=== PATIENT | male | born 1950 | race Caucasian/White ===

== ENCOUNTER 2016-08-10 09:56 | Inpatient (IN) | payer MEDICARE, OTHER ==
[~2016-08-10] VITALS: Ht 175.3 cm; Wt 54.6 kg
[2016-08-10] VITALS (7 sets, daily range): BP systolic 80–119; BP diastolic 43–55; PULSE 62–85; RESP 14–22; O2SAT 96–99
[~2016-08-10 09:56] MED LIST: ASPI-628 PO; METF500T4 PO; MULT-1018 PO
--- NOTE | 2016-08-10 10:08 | ED.REPORT ---
HPI-General Illness Date of Service Aug 10, 2016 ED Provider: Malika Mcdermott MD The pt is 66 y/o male w/ a hx COPD presenting to the ED complaining of epigastric pain onset 2 weeks ago. The pain initially got better but has now worsened. He is also experiencing chills, heart palpitations, night sweats, fatigue, myalgia, SOB, productive cough, excessive sputum, nausea, diarrhea, lightheadedness, dizziness, and a headache. He reports usually getting mild colds but nothing as severe as this. His currently has a mild cold. The pt is a former smoker w/ a 50 pack/year hx. He has had multiple episodes of SVT in the past. Denies fever. Nursing Notes Stated Complaint: CHEST PAIN Chief Complaint: Epigastric pain Nursing Notes Reviewed: Yes Allergies: Coded Allergies: No Known Drug Allergies (Verified Allergy, Unknown, 12/31/13) No Active Prescriptions or Reported Meds General Time Seen by MD: 10:04 Chief Complaint Abdominal pain (Epigastric ) Hx Obtained From: Patient Arrived By: Walk-in Sudden in Onset?: Yes Onset Occurred: More than a week ago... (2 weeks) Recent Healthcare: No recent hospitalization, Recent doctor visit Similar Sx Previous: Yes Past Medical History Past Medical History COPD Past Surgical History Reports: Tonsillectomy Smoking History Former Smoker (50 packs/yr ) Social History Other Social History: Good social support Ambulatory Status Independent Review of Systems Night sweats Full Review of Systems Constitutional: Reports: Chills, Fatigue, Denies: Fever Respiratory: Reports: Dyspnea on exertion, Prod cough, clear, Shortness of breath Cardiovascular: Reports: Palpitations GI: Reports: Abdominal pain (Epigastric ), Diarrhea, Nausea Musculoskeletal: Reports: Myalgia Neurologic: Reports: Dizziness, Headache, Lightheaded Complete sys rev & neg: except as marked. Physical Exam Vital Signs Vital Signs Date Time Temp Pulse Resp B/P Pulse Ox O2 Delivery O2 Flow Rate FiO2 08/10/16 13:14 85 14 89/52 97 08/10/16 11:44 80 21 91/43 99 Room Air 08/10/16 10:47 81 22 90/48 96 Room Air 08/10/16 10:03 36.8 85 15 119/53 99 Room Air Initial VS: Reviewed General/Constitutional: Awake, Alert Appearance / Presentation: Positive: Pale Very thin Head / Eyes: Atraumatic, Normocephalic ENT: Atraumatic, Airway patent, Mucous membranes moist Neck: Atraumatic, Supple, Full range of motion Respiratory / Chest: Breath sounds = bilat, No respiratory distress Wheezing / Retractions: Positive: Wheezing mild (Scattered ) Poor air movment throughout Not using accessory muscles and is speaking in full sentences. Cardiovascular: Heart rate NL, Regular rhythm, Heart sounds NL, Peripheral circulation NL Prominent abd aorta, 5 cm in width from epigastrium to umbilicus. Abdomen: Soft, BS normoactive Tenderness/Guarding/Rebound: Positive: Tender epigastric Interpretation & Diagnostics Lab Results Interpretation Result Diagram: 08/10/16 1005 08/10/16 1005 Test 08/10/16 10:05 08/10/16 10:56 White Blood Count 16.4th/mm3 (3.8-10.1) Red Blood Count 4.45mil/mm3 (4.40-5.80) Hemoglobin 13.6g/dL (13.8-17.2) Hematocrit 40.2% (41.0-50.0) Mean Corpuscular Volume 90.3fL (81-100) Mean Corpuscular Hemoglobin 30.6pg (27.0-35.0) Mean Corpuscular Hemoglobin Concent 33.8% (32.0-37.0) Red Cell Distribution Width 12.0% (12.3-15.4) Platelet Count 354bil/L (150-400) Neutrophils (%) (Auto) 74.8% (40-74) Lymphocytes (%) (Auto) 11.2% (14-46) Monocytes (%) (Auto) 12.0% (4-12) Eosinophils (%) (Auto) 1.3% (0-5) Basophils (%) (Auto) 0.2% (0-3) Sodium Level 137mEq/L (134-144) Potassium Level 3.9mEq/L (3.5-5.2) Chloride Level 98mEq/L (97-108) Carbon Dioxide Level 23mmol/L (18-29) Blood Urea Nitrogen 25mg/dL (8-27) Creatinine 1.14mg/dL (0.76-1.27) Estimat Glomerular Filtration Rate 68mL/min (>59) Glucose Level 126mg/dL (60-99) Calcium Level 9.4mg/dL (8.5-10.1) Magnesium Level 2.1mg/dL (1.6-2.6) Total Bilirubin 0.8mg/dL (0.0-1.2) Aspartate Amino Transf (AST/SGOT) 16U/L (0-50) Alanine Aminotransferase (ALT/SGPT) 10U/L (0-44) Alkaline Phosphatase 77U/L (25-160) Troponin T 0.093ug/L (0.0-0.011) Total Protein 7.9g/dL (6.4-8.4) Albumin 3.6g/dL (3.4-5.0) Procalcitonin 0.15ng/mL (0.00-0.08) Lactic Acid Level 2.0mmol/L (0.4-2.0) ECG Interpretation ECG Interpretation: Rate 82 Normal sinus rhythm Time: 10:02 Interpreted by: Client Application Support Engineer ECG Interpretation: Rate 150 Junctional tachycardia New rhythm Possible SVT Time: 13:06 Interpreted by: ED physician, Client Application Support Engineer ECG Interpretation: Rate 82 Normal sinus rhythm Atrial premature complex Probable left atrial enlargement Post 6 mg of Adenosine Time: 13:14 Interpreted by: ED physician, Client Application Support Engineer X-Ray Chest Interpretation Chest Xray Interpretation: IMPRESSION: Patchy consolidative left midlung opacity which appears new or increased raising the possibility of bronchopneumonia, however recommend radiographic followup to document resolution and exclude superimposed pulmonary nodule. Elsewhere, chronic interstitial changes and scarring as above. Dictated by: Rudolph Meade M.D. on 08/10/2016 at 10:38 Approved by: Rudolph Meade M.D. on 08/10/2016 at 10:42 View: Portable, 1 view Interpretation / Wet Read by: Interpret - Radiologist US Abdominal Aorta No aneurism, superficial aorta Exam Performed by: Allied health pract Procedures Central Line Placement Time: 13:12 Procedure Performed by: ED physician Consent / Setup / Site Prep: Consent from patient, Time-out performed, Pulse oximeter applied, telemetry monitor applied, Hand hygiene observed, Standard surgical scrub, Max barrier precaution, Position Trendelenburg Skin Preparation Agent: Hibiclens - Chlorhexidine Local Anesthesia: Lidocaine 1% Side / Location / Ultrasound: Internal jugular right, Ultrasound assisted Catheter / Lumen / Technique: Triple lumen, Secured with tape Central Line Tip Location: Cath tip positioned in (Distal Superiour Vena Cava almost to atrium ) Post-Procedure / Complications: Dressing placed, CXR neg for pneumothorax, Condition improved, Tolerated procedure well, Patient stable Re-Eval/Medical Decision Med Decision/Clinical Course 66-year-old gentleman presents to the urgent care complaining of some chest pain and increasing exertional dyspnea. He was recently treated for outpatient pneumonia complains of increasing weakness. At urgent care she felt that his exertional dyspnea was most likely a COPD exacerbation but was concerned about the possibility of an enlarging abdominal aneurysm and felt that cardiac etiology needed to be more fully worked up. Initial blood pressure systolic in urgent care was in the 110 range with a heart rate in the 80 range. Workup reveals a left-sided pneumonia slightly elevated troponin he complains of palpitations and has an episode of SVT that is treated with adenosine. This episode of SVT re-create the palpitations he has been having and with the episode he was clinically unstable dropping his blood pressure systolic to the 80s. Throughout his emergency room stay he continued to feel generally unwell and his blood pressure continued to drop despite repeated fluid boluses. Antibiotics were started in the form of ceftriaxone presuming a community-acquired pneumonia. He has already completed an outpatient course of azithromycin within the last 2 weeks. As his systolic blood pressure continued to follow he did not have increasing oxygenation commands. With his troponin positive he was given aspirin as well as subcutaneous Lovenox. After his third fluid bolus and continued hypotension he was moved to a larger exam room where the right internal ultrasound-guided central line was placed for pressors. After treating his episode of unstable supraventricular tachycardia care was briefly reviewed with Dr. Albrecht before starting was started and antibiotic choices were expanded to include Levaquin, penicillin tazobactam and vancomycin He was transferred to the second floor with, systolic blood pressure in the 90s, alert intact and no evidence of respiratory distress. Currently in sinus rhythm Source of Hx: Old records Time of Eval: 11:48 Re-Evaluation/Progress Note: Pt rechecked. Informed pt of need for admission. Pt understands and agrees with plan for admission. All questions addressed. Pt's systolic blood pressure was 93 after 1 liter of fluid. Going to try a second liter. Time of Eval: 13:12 Re-Evaluation/Progress Note: Central line procedure performed 6 mg of Adenosine was administered Time of Eval: 13:42 Re-Evaluation/Progress Note: Pt rechecked. Informed pt of need for admission. Pt understands and agrees with plan for admission. All questions addressed. Consultation #1: Referral / Consult Name: IrwinKizzy DO Consulted With: Hospitalist Call Returned at: 13:37 Taximeter Repairer: Will see patient, Agrees with eval, Agrees with plan, Accepts admit Consultation #2: Referral / Consult Name: Fahad Albrecht MD Consulted With: Cardiology Call Returned at: 13:38 Note: Discussed pt's case. Agreed with the plan to administer Levophed. Counseled Regarding: Diagnosis, Lab results, Need for admission Discharge & Departure Primary Impression: Pneumonia Pneumonia type: due to unspecified organism Laterality: left Lung location : unspecified part of lung Qualified Code: J18.9 - Pneumonia, unspecified organism Additional Impressions: Elevated troponin SVT (supraventricular tachycardia) Sepsis Disposition: ADMITTED TO HOSPITAL Discharge Condition All VS Reviewed: Yes Condition: Stable Referrals: Chino Orellana DO (PCP) Crit Care Except Billable Proc Time Spent: 30-74 minutes Services Performed: Patient management by me, Time spent at bedside, Reviewing test results, Reviewing imaging, Discussing patient care, Documentation in record, Time with fam/surrogate Scribe Attestation Portions of this note were transcribed by Alek Mcdonald. IDr. Mcdermott personally performed the history, physical exam and medical decision-making; I reviewed and confirmed the accuracy of the information in the transcribed note. Signed by : Deneen Del Rosario, 08/10/16 and 1049. copies to: Chino Orellana Shawna L MD Aug 10, 2016 10:08 Alek Mcdonald Aug 10, 2016 10:45
[2016-08-10 10:15] LABS: BASOPHILS % (AUTO) 0.2 % (0-3); EOSINOPHILS % (AUTO) 1.3 % (0-5); Mean Corpuscular Hemoglobin 30.6 pg (27.0-35.0); Mean Corpuscular Volume 90.3 fL (81-100); NEUTROPHILS % (AUTO) 74.8 % (40-74); Platelet Count 354 bil/L (150-400)
[2016-08-10] MEDS ORDERED: 0.9% Sodium Chloride 1,000 ML IV ONE ×4 (10:40→15:00)
--- NOTE | 2016-08-10 10:44 | DRSVH ---
PROCEDURE: X-RAY CHEST ONE VIEW, PORTABLE ([id number]) INDICATIONS: cp TECHNIQUE: One view of the chest was acquired. COMPARISON: [facility], CR, CHEST 1VW (PORTABLE), 12/24/2010, 23:23. [facility], CR, XR CHEST 2VW, 07/24/2016, 8:00. FINDINGS: Surgical changes and devices: None. Lungs and pleura: No pleural effusions or pneumothorax. Diffuse interstitial changes and prominent l inear scarring/atelectasis in the left upper lobe. There is 3 cm increased left midlung patchy consol idative opacity No definite new focal consolidation. Previous described right medial rib calcification unchanged proj ecting over the right upper lobe as before. Mediastinum: Mediastinal contours appear normal. Heart size is normal. Bones and chest wall: Lateral curvature of the spine and diffuse discogenic changes. IMPRESSION: Patchy consolidative left midlung opacity which appears new or increased raising the possibility of b ronchopneumonia, however recommend radiographic followup to document resolution and exclude superimpo sed pulmonary nodule. Elsewhere, chronic interstitial changes and scarring as above. Dictated by: Rudolph Meade M.D. on 08/10/2016 at 10:38 Approved by: Rudolph Meade M.D. on 08/10/2016 at 10:42
[2016-08-10] MEDS ORDERED: cefTRIAXone Inj 2,000 MG in Dextrose 5% Minibag Plus 50 ML IV ONE (10:50)
[2016-08-10 11:10] LABS: Magnesium 2.1 mg/dL (1.6-2.6)
--- NOTE | 2016-08-10 11:21 | DRSVH ---
PROCEDURE: US AORTA RETROPERITONEAL LIMITED INDICATIONS: large palable abdominal aorta TECHNIQUE: Real time scanning was performed of the aorta and iliac arteries, with image documentatio n. COMPARISON: None. FINDINGS: There is scattered atheromatous plaque. Aorta: Proximal aortic diameter measures 2.8 cm. Mid-aorta measures 1.7 cm. Distal aortic diameter is 1.5 cm. Iliac arteries: Right common iliac artery measures 0.8 cm. Left common iliac artery measures 0.7 cm . IMPRESSION: No aneurysm. Dictated by: Rudolph Meade M.D. on 08/10/2016 at 11:18 Approved by: Rudolph Meade M.D. on 08/10/2016 at 11:19
[2016-08-10 11:29] LABS: TROPONIN T 0.093 ug/L (0.0-0.011)
[2016-08-10] MEDS ORDERED: Norepineph 8,000 mCg/250 mL NS 8,000 MCG in IV Premix 1 EACH IV SCH (12:56)
[2016-08-10] MEDS ORDERED: levoFLOXacin Inj 750 MG in IV Premix 1 EACH IV ONE (13:00)
[2016-08-10] MEDS ORDERED: Piperacillin-Tazo 3.375 Gm Inj 3.375 GM in Dextrose 5% Minibag Plus 50 ML IV ONE (13:00)
[2016-08-10] MEDS ORDERED: Vancomycin Dose per Pharmacist XX ONE (13:00)
[2016-08-10] MEDS ORDERED: Adenosine 3 mg/mL 2 mL Inj IVPUSH ONE ×2 (13:05)
[2016-08-10] MEDS ORDERED: Vancomycin Inj 1,000 MG in IV Premix 1 EACH IV ONE (13:20)
--- NOTE | 2016-08-10 14:03 | DRSVH ---
PROCEDURE: X-RAY CHEST ONE VIEW, PORTABLE ([id number]) INDICATIONS: CENTRAL LINE PLACEMENT TECHNIQUE: One view of the chest was acquired. COMPARISON: [facility], CR, XR CHEST 1VW (PORTABLE), 08/10/2016, 10:14. FINDINGS: Surgical changes and devices: Right IJ CVL is in place tip projected over the upper SVC.. Lungs and pleura: No pleural effusions or pneumothorax. Diffuse interstitial changes and prominent l inear scarring/atelectasis in the left upper lobe. 3 cm increased left midlung patchy consolidative o pacity redemonstrated. No definite new focal consolidation. Previous described right medial rib calcification unchanged proj ecting over the right upper lobe as before. Mediastinum: Mediastinal contours appear normal. Heart size is normal. Bones and chest wall: No acute changes. Mild rightward curvature redemonstrated. IMPRESSION: 1. Placement right IJ CVL otherwise no change from recent exam. Dictated by: Elijah Cortes [facility] Interpreted: Mirian Carroll MD on 08/10/2016 at 14:00 Transcribed by: MARIA on 08/10/2016 at 14:02 Approved by: Mirian Carroll M.D. on 08/10/2016 at 14:24
[2016-08-10] MEDS: 0.9% Sodium Chloride 1,000 ML IV SCH ×7 (14:12→23:28)
[2016-08-10] MEDS ORDERED: Vasopressin Inj 20 UNIT in 0.9% Sodium Chloride 100 ML IV SCH (14:12)
[2016-08-10] MEDS ORDERED: Norepineph 8,000 mCg/250 mL NS 8,000 MCG in IV Premix 1 EACH IV PRN (14:12)
[2016-08-10] MEDS ORDERED: Acetaminophen IV 1,000 MG in IV Premix 1 EACH IV PRN (14:15)
[2016-08-10] MEDS ORDERED: Ondansetron 2 mg/mL 2 mL Inj IVPUSH PRN (14:15)
[2016-08-10] MEDS ORDERED: Dextrose 10% 250 ML IV PRN (14:20)
[2016-08-10] MEDS ORDERED: Glucose 40% Oral Gel 15 Gm Tube PO PRN (14:20)
[2016-08-10] MEDS ORDERED: Albuterol-Ipratropium 3 mL Inhalation Solution NEB PRN (14:25)
--- NOTE | 2016-08-10 15:27 | PCM.HPMED ---
Subjective Date of Service Aug 10, 2016 Primary Provider: Admitting Physician: Kizzy Irwin DO Primary Care Physician: Chino Orellana DO Attending Physician: Kizzy Irwin DO Admit Status: From the Emergency Department Chief Complaint: SOB, fevers and chills History of Present Illness: Gopi Rosenberg is a 66 year old man with a PMH of advanced COPD with severe bullous emphysema who presents with a 2 week history of increasing SOB, fevers and chills. He went to the urgent care on 07/24 to have this evaluated and was given a prednisone taper and a Z-palmer. It is questionable if the patient took the Zpak because he does not remember taking an antibiotic but does remember taking the steroid taper. His symptoms failed to improve so he presented back to the urgent care earlier today and was found to have tachycardia and hypotension with neutrophil predominant leukocytosis. Patient denies chest pain , abdominal pain, pain with deep inspiration, orthopnea, PND, recent hospitalization travel or incarceration. He does report some mild nausea. He arrived in the ED with an initial ECG showing sinus Tach at 150 consistent with SVT. He was given 6mg of Adenosine which acutely slowed his rate to the 80s and sinus. He was further given very broad spectrum antibiotics with IV Vanco, Zosyn, Levofloxacin, and Ceftriaxone in single doses. The patient remained hypotensive with 4L of fluid resuscitation and was subsequently placed on Norepi drip to maintain MAP. CXR further demonstrated advanced COPD with hyperdensities suspicious for mass lesions not previously documented. Review of Systems: Comprehensive ROS negative except as listed above in the HPI Allergies Coded Allergies: No Known Drug Allergies (Verified Allergy, Unknown, 12/31/13) Home Medications Metformin 500 mg PO BID with meals ProAir HFA 90 mcg/actuation aerosol inhaler 2 puff Q4-6hours PRN Qvar 40 mcg/Actuation Metered Aerosol oral inhaler 2 puff Q2hr daily PMH COPD with bullous emphysema Seborrheic Keratosis Prediabetes Palpitations Surgical History None reported Family History Father at age 86 of old age Mother with DM2 alive and otherwise well Brother in his 40s of unspecified cancer Brother in his 40s suddenly of undetermined cause Social History Hx Alcohol Use: Yes ("Socially") Hx Substance Use: No Smoking Status: Former Smoker (Patient smoked 1 pack per day for 55 years. Patient quit smoking 2 years ago) Living Arrangement: with Family Exam Vital Signs Vital Sign - Last Date Time Temp Pulse Resp B/P Pulse Ox O2 Delivery O2 Flow Rate FiO2 08/10/16 14:04 77 16 80/49 98 Room Air 08/10/16 10:03 36.8 Exam Gen: A/O x3 pleasant cooperative man in NAD Neck: Right IJ in place, supple, non tender, Full ROM HEENT: PERRL, EOMI, no scleral icterus, no conjunctival pallor CV: RRR, no murmurs rubs or gallops Resp: Very decreased lung sounds, mild diffuse expiratory wheezing Abdomen: Soft, non tender, no organomegaly, BS +4Q Extr: no cyanosis clubbing or edema Neuro: CN 2-12 grossly intact, no focal neurologic deficit Psych: pleasant and appropriate mood and affect Lab and Diagnostics Labs Item Value Date Time Red Blood Count 4.45 mil/mm3 08/10/16 1005 Mean Corpuscular Volume 90.3 fL 08/10/16 1005 Mean Corpuscular Hemoglobin 30.6 pg 08/10/16 1005 Mean Corpuscular Hemoglobin Concent 33.8 % 08/10/16 1005 Red Cell Distribution Width 12.0 % L 08/10/16 1005 Neutrophils (%) (Auto) 74.8 % H 08/10/16 1005 Lymphocytes (%) (Auto) 11.2 % L 08/10/16 1005 Monocytes (%) (Auto) 12.0 % 08/10/16 1005 Eosinophils (%) (Auto) 1.3 % 08/10/16 1005 Basophils (%) (Auto) 0.2 % 08/10/16 1005 Estimat Glomerular Filtration Rate 68 mL/min 08/10/16 1005 Lactic Acid Level 2.0 mmol/L 08/10/16 1056 Calcium Level 9.4 mg/dL 08/10/16 1005 Magnesium Level 2.1 mg/dL 08/10/16 1005 Total Bilirubin 0.8 mg/dL 08/10/16 1005 Aspartate Amino Transf (AST/SGOT) 16 U/L 08/10/16 1005 Alanine Aminotransferase (ALT/SGPT) 10 U/L 08/10/16 1005 Alkaline Phosphatase 77 U/L 08/10/16 1005 Troponin T 0.093 ug/L *H 08/10/16 1005 Total Protein 7.9 g/dL 08/10/16 1005 Albumin 3.6 g/dL 08/10/16 1005 Procalcitonin 0.15 ng/mL H 08/10/16 1005 Result Diagram: 08/10/16 1005 08/10/16 1005 Microbiology Respiratory PCR negative Blood cultures pending X-Rays, CTs and MRIs X-RAY CHEST ONE VIEW, PORTABLE IMPRESSION: Patchy consolidative left midlung opacity which appears new or increased raising the possibility of bronchopneumonia, however recommend radiographic followup to document resolution and exclude superimposed pulmonary nodule. Elsewhere, chronic interstitial changes and scarring as above. Dictated by: Rudolph Meade M.D. on 08/10/2016 at 10:38 Approved by: Rudolph Meade M.D. on 08/10/2016 at 10:42 US AORTA RETROPERITONEAL LIMITED IMPRESSION: No aneurysm. Dictated by: Rudolph Meade M.D. on 08/10/2016 at 11:18 Approved by: Rudolph Meade M.D. on 08/10/2016 at 11:19 X-RAY CHEST ONE VIEW, PORTABLE IMPRESSION: 1. Placement right IJ CVL otherwise no change from recent exam. Dictated by: Elijah Cortes RRA Interpreted: Mirian Carroll MD on 08/10/2016 at 14: 00 Transcribed by: MARIA on 08/10/2016 at 14:02 Approved by: Mirian Carroll M.D. on 08/10/2016 at 14:24 . 12-lead ECG Initial Sinus Tachycardia with rate 150 Follow up SR with rate 80 Assessment & Plan Gopi Rosenberg is a 66 year old man with a PMH of severe COPD who presents with a 2 week history of increasing SOB, subjective fevers, and chills unresponsive to outpatient prednisone taper and Zpack. Upon initial presentation he had an elevated Trop while in SVT and CXR suggestive of pneumonia with possible new lung nodule. Septic Shock, POA, acute. Active -Leukocytosis at 16.6, initially tachy at 150, Hypotensive at 80s/50s, requiring Norepinephrine to maintain pressures following 4L fluid resuscitation -Sepsis protocol initiated -Most likely secondary to pneumonia -Lactic acid normal -Procalcitonin minimally elevated -Elevated Troponin most likely secondary to tachycardia -Will attempt to wean off pressors as able -Will continue NS @ 75 ml/hr in this very thin gentleman, will bolus fluids as needed per sepsis protocol -Received 4L NS in the ED -Received Vanco, Zosyn, Levofloxacin, and Ceftriaxone in the ED Community acquired pneumonia, POA, acute. Active -ED antibiotics as above -Will continue with Ceftriaxone and Azithromycin pending cultures -Blood cultures pending, Respiratory PCR negative -Sputum cultures drawn after ED antibiotics pending -S.pneumonia and Legionella urine antigen pending -IVF as above -Will repeat CXR in the AM COPD, POA, chronic. Active -Review of [address] reveals severe bullous emphysema -DuoNeb Q4 PRN -Prednisone 40 mg PO daily -Repeat Chest CT w con -supplemental O2 as needed to keep sat >88 -Will consider palliative referral pending results of repeat CT Supraventricular tachycardia, POA, acute. Resolved -Initial ECG sinus Tach at 150 -Likely secondary to septic process -Echo results pending -Given Adenosine in the ED with good response -Tele monitoring Elevated Troponin of uncertain significance, POA, acute. Active -Likely secondary to tachycardia induced demand ischemia -Cannot rule out ACS however patient is asymptomatic from cardiac perspective -Initial Trop 0.093, will continue to trend Q4 -If uptrending will initiate Heparin drip and notify cardiology Possible new lung nodule, POA, chronicity uncertain. Active -Hyperdense spiculated mass on CXR -Will conduct Chest CT w con -Extensive Smoking history quit 2 years ago Prediabetes, POA, chronic. Active -Holding home Metformin due to contrast administration -Lispro sliding scale -A1c pending DVT prophylaxis: Lovenox Diet: Heart healthy CODE STATUS: Full code Disposition: Inpatient, anticipated length of stay greater than 2 midnights due to severity on condition and complexity of treatment plan. Pain Evaluation: Adequate Pain Control GI Prophylaxis: H2 louise VTE Prophylaxis: Sub-Q Enoxaparin VTE Mechanical Devices: Intermittant Pneumatic CD Resuscitation Status: CPR: Attempt Resuscitation Time spent 60 minutes Attending Statement The patient was seen and examined together with Dr. Li on 08/10/2016 and I have added additional information to the note above. Kishan Li DO Aug 10, 2016 15:26 Kizzy Irwin DO Aug 10, 2016 17:34
[2016-08-10] MEDS: Insulin LISPRO 300 Unit/3 mL Inj SUBQ SCH ×2 (16:32→21:15)
--- NOTE | 2016-08-10 16:42 | DRSVH ---
PROCEDURE: CT CHEST WITH CONTRAST ([id number]) INDICATIONS: pneumonia and COPD TECHNIQUE: After the administration of intravenous contrast, 5 mm thick sections acquired from the pulmonary api jamir to the posterior costophrenic angles. 7 mm thick coronal and sagittal MIP reformats were acquire d. For radiation dose reduction, the following was used: automated exposure control, adjustment of mA and/or kV according to patient size. COMPARISON: [facility], CT, CHEST W/O CONTRAST, 01/05/2014, 6:51. [facility] , CT, CHEST WITH CONTRAST, 01/01/2011, 8:25. FINDINGS: Image quality: Excellent. Lungs and pleura: Severe bullous emphysema is present bilaterally with an apical predominance. No pne umothorax. Patchy air space consolidation is present within the posterior aspect of the left upper lo be. There is extensive paraseptal emphysema bilaterally. No pleural effusion or pneumothorax. Mediastinum: Heart size is normal. No pericardial effusion. No mediastinal or hilar adenopathy by size criteria. Thoracic aorta and central pulmonary arteries are normal in size. There are scattered atheromatous calcifications throughout the aorta and iliac arteries bilaterally. Esophagus is normal in caliber. No hiatal hernia. Bones and chest wall: No suspicious bony lesions. No vertebral body compression fractures. No axil harrison or supraclavicular adenopathy by size criteria. Thyroid gland is unremarkable. Abdomen: Visualized upper abdominal solid organs appear normal. Upper abdominal bowel loops are nor mal in caliber. IMPRESSION: 1. Focal pulmonary consolidation within the posterior aspect of the left upper lobe suspicious for in fection or aspiration. Short interval followup is recommended to ensure there is no underlying pulmonary neoplasm. 2. Severe emphysematous changes. 3. Aortic atherosclerosis. Dictated by: Mirian Carroll M.D. on 08/10/2016 at 16:36 Approved by: Mirian Carroll M.D. on 08/10/2016 at 16:40
--- NOTE | 2016-08-10 17:49 | PCM.ADCARE ---
Advance Care Planning Note Plan: Date of service: 08/10/2016 Purpose of encounter: Goals of care Parties in attendance: Patient Dr. Irwin Diagnosis: Sepsis Community-acquired pneumonia Severe COPD Elevated troponin secondary to supraventricular tachycardia New Lung mass Prediabetes Decisional capacity: Good Plan: The patient is aware of the current diagnosis and would like to continue to be full code. The patient understands that this means for chest compressions , intubation, pressors, and all measures involved with CPR. CODE STATUS: Full code Time spent with advanced care planning: Greater than 16 minutes Kizzy Irwin DO Aug 10, 2016 17:49
--- NOTE | 2016-08-10 17:57 | NUR ---
Admit.. Received pt to 2017 accompanied by from the ER. Has been hypotensive since arrival and pt's CVP was noted to be 6. Norepi increased and fluid boluses of NS are infusing as ordered. Has not voided yet and MD aware. Taken to CT scan for Chest CT on monitor with RN in attendance. Lucian procedure well. Noted to have wallet in pants.. offered to place in safe, but pt declines and will send wallet home with when she returns.
[2016-08-10 18:41] LABS: APPEARANCE,URINE CLEAR (CLEAR,HAZY); COLOR,URINE YELLOW (YELLOW); OCCULT BLOOD,URINE NEGATIVE (NEGATIVE); UROBILINOGEN,URINE NORMAL (NORMAL)
[2016-08-11] VITALS (8 sets, daily range): BP systolic 109–122; BP diastolic 61–71; PULSE 73–82; RESP 16–23; O2SAT 93–96
--- NOTE | 2016-08-11 02:46 | NUR ---
Hypotension P: on low dose levo gtt, cvp 7-9, NS @ 75 cc/hr I: continue NS 500cc boluses, able to wean off levo gtt @ 2400. E: Map>65, pt voiding with adequate uo, cumulative NS 5.5L so far Patient report given to Lambert Beckett RN @0322
[2016-08-11 04:43] LABS: BASOPHILS % (AUTO) 0.2 % (0-3); EOSINOPHILS % (AUTO) 3.3 % (0-5); MONOCYTES % (AUTO) 12.3 % (4-12); Mean Corpuscular Hemoglobin 30.1 pg (27.0-35.0); Mean Corpuscular Volume 90.9 fL (81-100); NEUTROPHILS % (AUTO) 73.1 % (40-74); Platelet Count 245 bil/L (150-400)
[2016-08-11 04:58] LABS: INR 1.13 ratio
[2016-08-11 05:26] LABS: Magnesium 1.6 mg/dL (1.6-2.6)
--- NOTE | 2016-08-11 05:56 | NUR ---
Transfer of Care/Cardiac Assumed care of pt @ 0240, BP stable and pt denies pain, SOB or CP. Pt is A&Ox3 and using urinal independently in bed. Pt is on bedrest and is able to move independently in bed. VSS and Tele SR.
[2016-08-11] MEDS ORDERED: Potassium Phos (mMol) Inj 15 MMOL in Dextrose 5% 250 ML IV ONE (06:55)
[2016-08-11] MEDS: Insulin LISPRO 300 Unit/3 mL Inj SUBQ SCH ×4 (08:00→21:01)
[2016-08-11] MEDS: predniSONE 20 mg Tablet PO SCH (08:34)
[2016-08-11] MEDS: cefTRIAXone Inj 2,000 MG in Dextrose 5% Minibag Plus 50 ML IV SCH (08:35)
[2016-08-11] MEDS: Azithromycin Inj 500 MG in Dextrose 5% w/Vial Mate 250 ML IV SCH (08:35)
--- NOTE | 2016-08-11 09:08 | DRSVH ---
[facility] [address] [place] [address] Echocardiogram Report Name: GT VILLASENOR EStudy Date : 08/10/2016 Height: 69 in Hospital Exam Location: [facility] Weight: 113 lb Gender: Male BSA: 1.6 m2 : 1950 Age: 66 yrs BP: 94/56 mmHg Reason For Study: Hypotension, POSITIVE TROPONIN Ordering Physician: HOSPITALIST [facility] Performed By: Sterling Dugan Referring Physician: GERONIMO VENTURA Interpretation Summary The left ventricle is normal in size. The ejection fraction is estimated to be 60-65%. The right ventricle is grossly normal size. The right ventricular systolic function is normal. There is mild to moderate tricuspid regurgitation. The right ventricular systolic pressure is estimated at 37 mmHg assuming a right atrial pressure of 8 mm Hg. There is mild luminal irregularity and echogenicity in the abdominal aorta, suggestive of aortic atherosclerotic disease. A prominent eustachian valve is noted. Procedure: A two-dimensional transthoracic echocardiogram with color flow and Doppler was performed. The study quality was technically adequate. The apical views were difficult to obtain and are suboptimal in quality. There is no prior echocardiogram noted for this patient. The patient was in normal sinus rhythm during the exam. Left Ventricle: The left ventricle is normal in size. There is normal left ventricular wall thickness. There is no thrombus. The ejection fraction is estimated to be 60-65%. Septal motion is consistent with conduction abnormality. Diastolic function could not be accurately assessed due to unobtainable data. Right Ventricle: The right ventricle is grossly normal size. A moderator band is seen in the right ventricle. The right ventricular systolic function is normal. Atria: The left atrium grossly appears normal in size. The right atrium is mildly dilated. A prominent eustachian valve is noted. The interatrial septum is intact with no evidence for an atrial septal defect. Mitral Valve: The mitral valve leaflets appear mildly thickened, but open well. The mitral valve leaflets are slightly calcified. There is mild mitral annular calcification. There is trace mitral regurgitation. Aortic Valve: The aortic valve is grossly normal. The aortic valve is not well visualized. There is no aortic valve stenosis. No aortic regurgitation is present. Tricuspid Valve: The tricuspid valve leaflets are thickened and/or calcified, but open well. There is mild to moderate tricuspid regurgitation. The right ventricular systolic pressure is estimated at 37 mmHg assuming a right atrial pressure of 8 mm Hg. Pulmonic Valve: The pulmonic valve is not well visualized. Great Vessels: The aortic root is normal size. The ascending aorta could not be visualized. There is mild luminal irregularity and echogenicity in the abdominal aorta, suggestive of aortic atherosclerotic disease. The pulmonary is not well visualized. The IVC is dilated (diameter is greater than 2.1 cm) yet it collapses greater than 50% with a sniff. This suggests a right atrial pressure of 8 mm Hg. Pericardium/ Pleura There is no pericardial effusion. There is no pleural effusion. MMode/2D Measurements & Calculations LVIDd: 4.2 cm IVC diam: 2.3 cm RA long axis LVOT diam LVIDs: 2.4 cm FS: 42.5 % RA area AoV Opening EPSS: 0.00 cm IVSd: 0.61 cm : 16.1 cm Ao root diam LVPWd: 0.90 cm RA vol: 43.1 ml: 3.4 cm RA : 26.6 mm2 LV [place]. diameter/BSA LV sys. diameter/BSA (cm/m^2): 2.6 (cm/m^2): 1.5 Doppler Measurements & Calculations Ao V2 max: 118.4 cm/sec TR max wesley Ao V2 mean LV V1 max PG Ao max P.6 mmHg : 270.5 cm/sec : 77.7 cm/sec Ao mean P.8 mmHg TR max PG Ao V2 VTI LV V1 VTI LVOT Max Wesley : 29.3 mmHg : 19.7 cm : 95.3 cm/sec SRINIVAS(V,D): 2.2 cm2 SRINIVAS(I,D): 2.1 cm sev ratio: 0.79 SRINIVAS indexed to BSA (cm^2/m^2): 1.3 Reading Physician:MARCIO
--- NOTE | 2016-08-11 09:15 | DRSVH ---
PROCEDURE: X-RAY CHEST ONE VIEW, PORTABLE ([id number]) INDICATIONS: "sepsis" TECHNIQUE: One view of the chest was acquired. COMPARISON: None. FINDINGS: Surgical changes and devices: There is a right internal jugular central line with the tip in the supe rior vena cava. telemetry monitor leads are seen over the chest. Lungs and pleura: There are chronic increased markings in the chest. Esophagus some patchy pneumonia in the left midlung field is a new finding. No more than minimal pleural effusion is seen in either p leural space. Mediastinum: Mediastinal contours appear normal. Heart size is normal. Bones and chest wall: No suspicious bony lesions. Overlying soft tissues appear unremarkable. IMPRESSION: Chronic lung disease and chronic markings with a superimposed left-sided pneumonia periph erally in the left mid to lower lung field. Dictated by: Adrian Maya M.D. on 08/11/2016 at 9:10 Approved by: Adrian Maya M.D. on 08/11/2016 at 9:13
--- NOTE | 2016-08-11 11:34 | PCM.PNMED ---
Subjective Date of Service Aug 11, 2016 Subjective When informed of the advanced nature of his COPD and the possibility of malignancy in his Lung Mr. Rosenberg stated that he needed time to consult with his and consider his options moving forward. He states that he is well today with improved breathing and overall in much better spirits prior to receiving the aforementioned news. Overnight the patient was able to be weaned off pressors, and was thus transferred to [facility] Comprehensive ROS negative except as outlined above. Exam Vital Signs Vital Sign - Last Date Time Temp Pulse Resp B/P Pulse Ox O2 Delivery O2 Flow Rate FiO2 08/11/16 08:30 37.3 80 23 117/66 93 Room Air Intake and Output 08/10/16 08/10/16 08/11/16 Cumulative From/Thru 15:00 23:00 07:00 08/10/16 10:03 - 08/11/16 06:32 Intake Total 2000 ml 2184 ml 3092 ml 7276 ml Output Total 200 ml 2425 ml 2625 ml Balance 2000 ml 1984 ml 667 ml 4651 ml Intake Oral 400 ml 400 ml IV Total 2000 ml 2184 ml 2692 ml 6876 ml Output Urine Total 200 ml 2425 ml 2625 ml # Bowel Movements 0 0 Exam Gen: A/O x3 pleasant very slender cooperative man in NAD Neck: Right IJ in place, supple, non tender, Full ROM HEENT: PERRL, EOMI, no scleral icterus, no conjunctival pallor CV: RRR, no murmurs rubs or gallops Resp: Very decreased lung sounds, mild diffuse expiratory wheezing Abdomen: Soft, non tender, no organomegaly, BS +4Q Extr: no cyanosis clubbing or edema Neuro: CN 2-12 grossly intact, no focal neurologic deficit Psych: pleasant and appropriate mood and affect IVs and Medications IV Fluids 300 ml NS delivered with IV meds Medications Reviewed: Medications were reviewed in detail Lab and Diagnostics Item Value Date Time Estimat Glomerular Filtration Rate 117 mL/min 08/11/16 0430 Calcium Level 7.4 mg/dL L 08/11/16 0430 Phosphorus Level 2.0 mg/dL L 08/11/16 0430 Total Bilirubin 0.4 mg/dL 08/11/16 0430 Magnesium Level 1.6 mg/dL 08/11/16 0430 Aspartate Amino Transf (AST/SGOT) 12 U/L 6/17/17 0430 Alanine Aminotransferase (ALT/SGPT) 7 U/L 08/11/16429 Troponin T 0.036 ug/L *H 08/11/16429 Alkaline Phosphatase 55 U/L 08/11/16429 Total Protein 4.9 g/dL L 08/11/16429 Albumin 2.6 g/dL L 08/11/16429 Procalcitonin 0.11 ng/mL H 08/11/16429 Red Blood Count 3.42 mil/mm3 L 08/11/16429 Mean Corpuscular Volume 90.9 fL 08/11/16429 Mean Corpuscular Hemoglobin 30.1 pg 08/11/16429 Mean Corpuscular Hemoglobin Concent 33.1 % 08/11/16429 Red Cell Distribution Width 12.0 % L 08/11/16429 Neutrophils (%) (Auto) 73.1 % 08/11/16429 Lymphocytes (%) (Auto) 10.9 % L 08/11/16429 Monocytes (%) (Auto) 12.3 % H 08/11/16429 Eosinophils (%) (Auto) 3.3 % 08/11/16429 Basophils (%) (Auto) 0.2 % 08/11/16429 Prothromb Time International Ratio 1.13 ratio 08/11/16429 Prothrombin Time 12.1 sec 08/11/16429 Urine Legionella pneumophilia Ag Negative 08/10/161999 Result Diagram: 08/11/1642908/11/16429 Microbiology Respiratory PCR negative Blood cultures pending X-Rays, CTs and MRIs X-RAY CHEST ONE VIEW, PORTABLE IMPRESSION: Patchy consolidative left midlung opacity which appears new or increased raising the possibility of bronchopneumonia, however recommend radiographic followup to document resolution and exclude superimposed pulmonary nodule. Elsewhere, chronic interstitial changes and scarring as above. Dictated by: Rudolph Meade M.D. on 08/10/2016 at 10:38 Approved by: Rudolph Meade M.D. on 08/10/2016 at 10:42 US AORTA RETROPERITONEAL LIMITED IMPRESSION: No aneurysm. Dictated by: Rudolph Meade M.D. on 08/10/2016 at 11:18 Approved by: Rudolph Meade M.D. on 08/10/2016 at 11:19 X-RAY CHEST ONE VIEW, PORTABLE IMPRESSION: 1. Placement right IJ CVL otherwise no change from recent exam. Dictated by: Elijah Cortes RRA Interpreted: Mirian Carroll MD on 08/10/2016 at 14: 00 Transcribed by: MARIA on 08/10/2016 at 14:02 Approved by: Mirian Carroll M.D. on 08/10/2016 at 14:24 . 12-lead ECG Initial Sinus Tachycardia with rate 150 Follow up SR with rate 80 Cardiac Echo Impressions Interpretation Summary The left ventricle is normal in size. The ejection fraction is estimated to be 60-65%. The right ventricle is grossly normal size. The right ventricular systolic function is normal. There is mild to moderate tricuspid regurgitation. The right ventricular systolic pressure is estimated at 37 mmHg assuming a right atrial pressure of 8 mm Hg. There is mild luminal irregularity and echogenicity in the abdominal aorta, suggestive of aortic atherosclerotic disease. A prominent eustachian valve is noted. Reading Physician:MARCIO Burr Assessment & Plan Gopi Rosenberg is a 66 year old man with a PMH of severe COPD who presents with a 2 week history of increasing SOB, subjective fevers, and chills unresponsive to outpatient prednisone taper and Zpack. Upon initial presentation he had an elevated Trop while in SVT and CXR suggestive of pneumonia with possible new lung nodule. Septic Shock, POA, acute. Improving -Leukocytosis at 16.6, initially tachy at 150, Hypotensive at 80s/50s, requiring Norepinephrine to maintain pressures following 4L fluid resuscitation -White count has trended towards normal, weaned off pressors with stable hemodynamics -Sepsis protocol initiated -Most likely secondary to pneumonia -Lactic acid normal -Procalcitonin minimally elevated -Elevated Troponin most likely secondary to tachycardia -Received 4L NS in the ED -Received Vanco, Zosyn, Levofloxacin, and Ceftriaxone in the ED Community acquired pneumonia, POA, acute. Active -ED antibiotics as above -Will continue with Ceftriaxone and Azithromycin pending cultures -Blood cultures pending, Respiratory PCR negative -Sputum cultures drawn after ED antibiotics pending -S.pneumonia and Legionella urine antigen pending COPD, POA, chronic. Active -Review of [address] images reveals severe bullous emphysema -DuoNeb Q4 PRN -Prednisone 40 mg PO daily -Repeated Chest CT w con with results as above -supplemental O2 as needed to keep sat >88 -Will consider palliative referral based on the results of repeat CT Supraventricular tachycardia, POA, acute. Resolved -Initial ECG sinus Tach at 150 -Likely secondary to septic process -Echo results pending -Given 6mg Adenosine in the ED with good response -Tele monitoring Elevated Troponin of uncertain significance, POA, acute. Active -Likely secondary to tachycardia induced demand ischemia -Initial Trop 0.093, since stabilized -ECHO with results as above, not concerning for ACS Possible new lung nodule, POA, chronicity uncertain. Active -Hyperdense spiculated mass on CXR -CT with results as above -Extensive Smoking history quit 2 years ago -Review of outpatient records indicate about 4 kg weight loss in the past 6 weeks in this already very thin gentleman -Consult pulmonology to ascertain if biopsy is feasible Prediabetes, POA, chronic. Active -Holding home Metformin due to contrast administration -Lispro sliding scale -A1c pending DVT prophylaxis: Lovenox Diet: Heart healthy CODE STATUS: Full code Disposition: Patient is improving rapidly from an infectious standpoint, further hospital course will be dictated in large part about the expediency to which we can facilitate full evaluation of his possible pulmonary neoplastic process. Pain Evaluation: Adequate Pain Control GI Prophylaxis: H2 louise VTE Prophylaxis: Sub-Q Enoxaparin VTE Mechanical Devices: Intermittant Pneumatic CD Resuscitation Status: CPR: Attempt Resuscitation Attending Statement The patient was seen and examined together with Dr. Li on 08/11/16 and I have added additional information to the note above. Kishan Li DO Aug 11, 2016 11:34 Kizzy Irwin DO Aug 11, 2016 14:56
--- NOTE | 2016-08-11 14:49 | NUR ---
Social Work: Initial Assessment D: Per EMR review, pt is a 66 year old male admitted for pneumonia, elevated troponin. Pt is Medicare with no supplement, LTC insurance or VA benefits. PCP is through the [facility]. NOK is Gabriela Rosenberg, , . Advanced directives information declined. Readmit score is low, 0/8. UM RN met with pt and family at bedside. Sw role explained and contact info provided. See initial assessment. Pt lives in [place] with his . Pt is I at baseline, uses no DME, continues to drive and has never had HH or skilled rehab. Pt and family anticipate no sw needs at discharge. Pt lives in a single story home with 1-2 steps to enter his home. A: Pt who is I at baseline. P: Evolving; Anticipate pt to d/c home when medically stable. UM RN to continue to follow pts clinical course and assist with safe discharge planning. JONATHAN Cui Addendum: 08/11/16 at 1453 by RIAZ SLATER Amended: Links added.
--- NOTE | 2016-08-11 16:29 | NUR ---
Transfer Received pt from CCU RN around 1030. Pt A&O X3. Answers questions appropriately. LANZA. Denies any numbness or tingling. Lungs are decreased with scattered crackles. Bowel tones active. Last BM today, per patient. No c/o pain but does state that his R IJ is quite uncomfortable, especially when sleeping. CBGs 102 and 145. Will receive insulin with dinner.
[2016-08-12 03:45] VITALS: BP 107/64; PULSE 66; RESP 16; O2SAT 94
[2016-08-12 04:03] LABS: BASOPHILS % (AUTO) 0.2 % (0-3); EOSINOPHILS % (AUTO) 2.8 % (0-5); MONOCYTES % (AUTO) 11.2 % (4-12); Mean Corpuscular Hemoglobin 30.2 pg (27.0-35.0); Mean Corpuscular Volume 89.2 fL (81-100); NEUTROPHILS % (AUTO) 73.2 % (40-74); Platelet Count 210 bil/L (150-400)
[2016-08-12 04:44] LABS: Magnesium 1.9 mg/dL (1.6-2.6); Phosphorus 2.4 mg/dL (2.5-4.9)
[2016-08-12 05:18] VITALS: PULSE 78
--- NOTE | 2016-08-12 05:57 | NUR ---
Rest Pt was able to get rest through most of the shift. Pt did not require insulin coverage for HS BG of 121. VSS and pt's SpO2 remains >92% on RA.
[2016-08-12] MEDS: Insulin LISPRO 300 Unit/3 mL Inj SUBQ SCH ×2 (08:00→12:00)
[2016-08-12] MEDS: predniSONE 20 mg Tablet PO SCH (08:18)
[2016-08-12] MEDS: cefTRIAXone Inj 2,000 MG in Dextrose 5% Minibag Plus 50 ML IV SCH (08:19)
--- NOTE | 2016-08-12 08:23 | DRSVH ---
PROCEDURE: X-RAY CHEST ONE VIEW, PORTABLE ([id number]) INDICATIONS: fu pneumonia TECHNIQUE: One view of the chest was acquired. COMPARISON: [facility], CR, XR CHEST 1VW (PORTABLE), 08/11/2016, 3:35. FINDINGS: Surgical changes and devices: Unchanged right central venous catheter. Lungs and pleura: Blunting of the left costophrenic angle suggestive of mild pleural fluid versus ate lectasis/scarring. No pneumothorax. Bilateral interstitial changes as before. There is improvement in bilateral widespread glass opacities suggestive of improving pulmonary edema. Mild improvement in patchy consolidation within the left upper lobe and midlung since earlier same d ay. Retrocardiac consolidation which is worsened. Mediastinum: Mediastinal contours appear normal. Heart size is normal. Bones and chest wall: No suspicious bony lesions. Overlying soft tissues appear unremarkable. IMPRESSION: Worsening retrocardiac consolidation suggesting aspiration/atelectasis versus pneumonia. Please corre late clinically. Recommend continued radiographic followup. Improving pulmonary edema and mildly improved aeration of the left upper lobe/midlung. Dictated by: Rudolph Meade M.D. on 08/12/2016 at 8:17 Approved by: Rudolph Meade M.D. on 08/12/2016 at 8:21
[2016-08-12] MEDS: Azithromycin Inj 500 MG in Dextrose 5% w/Vial Mate 250 ML IV SCH (08:25)
[2016-08-12 08:30] VITALS: BP 113/71; PULSE 76; RESP 16; O2SAT 94
--- NOTE | 2016-08-12 08:30 | NUR ---
[facility] SIgned
[2016-08-12 08:49] VITALS: PULSE 87
[2016-08-12 11:57] VITALS: BP 105/67; PULSE 74; RESP 18; O2SAT 94
[2016-08-12] MEDS ORDERED: PRE20 PO (12:53)
[2016-08-12] MEDS ORDERED: AZIT500T5 PO (12:53)
--- NOTE | 2016-08-12 13:01 | PCM.DIMED ---
Parker Rodriguez DO 08/12/16 1301: Discharge Instructions Date of Service Aug 12, 2016 Dates of Hospitalization Aug 10, 2016 at 13:47 Discharge Diagnosis Discharge Diagnosis Septic Shock Community acquired pneumonia COPD exacerbation Supraventricular tachycardia Elevated Troponin of uncertain significance New lung nodule/mass Medication Instructions Additional med instructions Prednisone 40mg by mouth daily for 7 days Azithromycin 500mg by mouth daily for 5 days Diet Discharge Diet: No restrictions Activity Discharge Activity: No restrictions Call your provider Call your provider for: Fever or Chills, Shortness of breath Patient Instructions Patient Instructions You were admitted due to pneumonia and COPD. You briefly required a stay in the ICU to help maintain your blood pressure. On CT there was a mass noted in the lower lobe of your left lung. This will need additional imaging in a month. Your primary care doctor can provide the order. Please continue to take Prednisone 40mg daily for 7 days and Azithromycin 500mg daily for 5 days. Follow-up Provider: Bhavna Barker MD Follow-up with PCP in: 1 week Kizzy Irwin DO 08/12/16 1831: Discharge Instructions Medication Instructions Additional med instructions Patient was called and instructed to only take 5 days of prednisone not 7 Attending's Statement The patient was seen and examined together with Dr. Rodriguez on 08/12/2016 and I have added additional information to the note above. Parker Rodriguez DO Aug 12, 2016 13:01 Kizzy Irwin DO Aug 12, 2016 18:31
--- NOTE | 2016-08-12 13:53 | NUR ---
Social Work: Discharge D: Pt discussed in am rounds. Pt is medically stable for discharge home. MD identifies no sw needs. [employer] met with patient at bedside to confirm discharge plan. Pt and agree with plan for discharge home. Pt ambulating I during [employer] TE[employer]ER visit and putting shoes on. EMR reviewed; no sw needs identified. A: Pt who is I at baseline. P: Pt to discharge home with spouse to transport. No sw needs. JONATHAN uCi
--- NOTE | 2016-08-12 14:11 | CONS ---
[address] [address] CONSULTATION REPORT PATIENT: GT VILLASENOR : 1950 MR#: [id number] ADMIT: 08/10/2016 JOB ID: [id number] DATE OF SERVICE: 08/12/2016 PULMONARY CONSULTATION: REQUESTING PHYSICIAN: Kishan Li DO REASON FOR CONSULTATION: Abnormal chest x-ray. HISTORY OF PRESENT ILLNESS: The patient is a 66-year-old male who was in his usual state of good health until about two weeks ago. At that time he noted some chills. Does not think he had a fever, nor did he sweat. Being without a primary physician, he presented himself to Urgent Care. There he was unsure of the diagnosis but was given prednisone. He states he felt quite a bit better after a few days, but upon discontinuing the prednisone he noticed that he was getting a bit tired, with malaise. There was no fever, chills, or sweats. He has a chronic headache due to hypertension and some cardiac issues, but this has been going on for decades and has not changed. There was no shortness of breath. No fever, chills, or sweats. No particular problem with cough or sputum production. There was no chest pain, either pleuritic or otherwise. No postnasal drip or change in his voice. Did lose his appetite during this time, except when he was taking the prednisone, and believes he lost between 4 and 6 pounds during the two weeks' time. There was no rash. There was no swelling. There was no diarrhea. The patient was told approximately five or six years ago that he had some lung issues that were found on routine chest x-ray. He was not given any medications, nor does he particularly know exactly what was seen. He has no particular problems with exercise intolerance other than when he has to run after grandchildren. He can walk unlimited distances and climb stairs with impunity. Has an occasional cough maybe twice a year that he relates possibly to the time of the year, not particularly allergies however. PAST MEDICAL HISTORY: Cardiac arrhythmia. Says it peaks at two times to every one beat at times. Not quite sure what he is trying to tell me. Does not take any medications for this. REVIEW OF SYSTEMS: No diplopia or visual disturbances. No postnasal drip or allergic symptoms. No palpable lymph nodes. No known thyroid disease or liver disease. No nausea, vomiting, diarrhea, constipation, or black stool. No blood in his stool. No peripheral edema. No back or peripheral joint pain. No rash. Remainder of review of systems noncontributory. ALLERGIES: None known. HOME MEDICATIONS: None, though admitting history notes metformin, ProAir, and QVAR. SMOKING HISTORY: The patient smoked one pack a day for 55 years, quitting two years ago at his 's urging. He was not having any pulmonary problems. GEOGRAPHIC HISTORY: The patient was born in the [facility] and has resided here. TRAVEL: None. PETS: Dog and a cat. 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 He was not particularly exposed to grinding metals. Occasionally dealt with some liquid chemicals. HOBBIES: Enjoys woodworking. Recently put cedar shingles on a small dwelling, sounds like for the dog. He is not sure whether they were Western red cedar or not. OBJECTIVE: Temperature 36.8. Pulse high 70s. (On admission EKG showed supraventricular tachyarrhythmia with a ventricular rate of 150. Responded to adenosine, though requiring 12 mg.) Respiratory rate 16. Blood pressure 113/71. O2 sat on room air is 94%. General appearance: Well developed, well nourished, thin male in no acute distress. Eyes: Conjunctiva pink and moist. No scleral icterus. EOMs were full. Nose: Minimal erythema. No edema. No tenderness over the area of the sinuses. Throat: Good oral hygiene. Uvula connor in the midline. Oropharynx was normal appearance. Multiple teeth missing. Lymph nodes: None palpable. Thyroid not palpable. Chest: Normal resonance to percussion. Good breath sounds bilaterally. There are some inspiratory crackles at the left base, extending maybe up into the left mid lung field. The remainder of the lung chino are clear. No use of accessory muscles. Heart: Regular rhythm. Heart tones normal. No S3. No lifts, heaves, or thrills. Abdomen: Soft. Nondistended. Nontender. Liver and spleen not palpable. No masses palpable. Bowel tones active. Back: No CVA or spinal tenderness. Extremities: No clubbing, cyanosis, nor pretibial edema. Skin: No rashes. IMAGING: Chest x-ray shows improved multifocal ill-defined opacities. There is consolidation in the left upper lobe. CT scan of the chest of August 10, 2016 shows severe bullous emphysema with apical predominance. There is patchy airspace consolidation in the posterior aspect of the left upper lobe, broken up by cystic air spaces. One appears to have a fluid level in it. LABORATORY DATA: Shows a white count of 10,000, being 16,400 on admission 48 hours previously. Normal differential. Hemoglobin 11.2. Platelet count 210,000 and decreasing from the admitting value of 354,000 two days previously. Sodium 141, potassium 3.4, chloride 105, CO2 is 25, BUN 9, creatinine 0.7. Calcium is 8.4 with an albumin of 2.6. Phosphorus mildly low at 2.4. Magnesium normal at 1.9. Total bilirubin normal at 0.2. AST normal at 15, ALT normal at 9, alkaline phosphatase normal at 63. Troponin T is 0.036. Procalcitonin was 0.11 on admission. Today's value is 0.09. Urine for Legionella antigen is negative. Sputum Gram stain shows rare polys. Some mixed luis. Urine for Streptococcus pneumoniae antigen is negative. Respiratory viral panel by PCR is negative. Echocardiogram shows normal sized left ventricle with an ejection fraction of 60% to 65%. Grossly normal right ventricle with systolic function described as normal, although right ventricular systolic pressure estimated at 37. ASSESSMENT: Abnormal chest x-ray. Radiograph and CT to my eye look more like an infiltrative process resulting in consolidation. It appears that one of the cystic spaces has developed some fluid. His only symptom was malaise, but I think we are probably dealing with an infectious process. There is certainly some concern over bronchogenic carcinoma. This appears to be an infiltrative process disrupted by the cystic parenchymal disease. Biopsy in addition would be significant risk for pneumothoraces, both by of bronchoscopic approach and transthoracic needle aspiration biopsy. I think at this point I would be content to watch the x-ray, repeating it in possibly six or eight weeks barring any clinical deterioration. PLAN: 1. Review film with the radiologist tomorrow. 2. If plan is to repeat the x-ray in 6-8 weeks some logistic arrangements will have to be made as he does not have a primary care physician. 3. Continue current antibiotic regimen. Thank you so much, Dr. Li, for asking me to see this most delightful individual. I will follow his respiratory status closely along with you.
--- NOTE | 2016-08-12 14:28 | PCM.DC.MED ---
Discharge Summary Date of Service Aug 12, 2016 Dates of Hospitalization Date of Hospital Admission Aug 10, 2016 at 13:47 Date of Discharge: Aug 12, 2016 Providers: Admitting Physician: Kizzy Irwin DO Primary Care Physician: Chino Orellana DO Attending Physician: Kizzy Irwin DO Diagnosis at Time of Discharge Diagnosis at Time of Discharge Septic Shock Community acquired pneumonia COPD exacerbation Supraventricular tachycardia Elevated Troponin of uncertain significance New lung nodule/mass Consultations Pulmonology critical care (Dr. Deshpande) case was discussed with him thoroughly today. Procedures XRay, CTs & MRIs X-RAY CHEST ONE VIEW, PORTABLE IMPRESSION: Patchy consolidative left midlung opacity which appears new or increased raising the possibility of bronchopneumonia, however recommend radiographic followup to document resolution and exclude superimposed pulmonary nodule. Elsewhere, chronic interstitial changes and scarring as above. Dictated by: Rudolph Meade M.D. on 08/10/2016 at 10:38 Approved by: Rudolph Meade M.D. on 08/10/2016 at 10:42 US AORTA RETROPERITONEAL LIMITED IMPRESSION: No aneurysm. Dictated by: Rudolph Meade M.D. on 08/10/2016 at 11:18 Approved by: Rudolph Meade M.D. on 08/10/2016 at 11:19 X-RAY CHEST ONE VIEW, PORTABLE IMPRESSION: 1. Placement right IJ CVL otherwise no change from recent exam. Dictated by: Elijah Cortes [facility] Interpreted: Mirian Carroll MD on 08/10/2016 at 14: 00 Transcribed by: MARIA on 08/10/2016 at 14:02 Approved by: Mirian Carroll M.D. on 08/10/2016 at 14:24 . ECG 12 Lead Initial Sinus Tachycardia with rate 150 Follow up SR with rate 80 Cardiac Echo Impression Interpretation Summary The left ventricle is normal in size. The ejection fraction is estimated to be 60-65%. The right ventricle is grossly normal size. The right ventricular systolic function is normal. There is mild to moderate tricuspid regurgitation. The right ventricular systolic pressure is estimated at 37 mmHg assuming a right atrial pressure of 8 mm Hg. There is mild luminal irregularity and echogenicity in the abdominal aorta, suggestive of aortic atherosclerotic disease. A prominent eustachian valve is noted. Reading Physician:AM . Brief History Gopi Rosenberg is a 66 year old man with a PMH of advanced COPD with severe bullous emphysema who presents with a 2 week history of increasing SOB, fevers and chills. He went to the urgent care on 07/24 to have this evaluated and was given a prednisone taper and a Z-palmer. It is questionable if the patient took the Zpak because he does not remember taking an antibiotic but does remember taking the steroid taper. His symptoms failed to improve so he presented back to the urgent care earlier today and was found to have tachycardia and hypotension with neutrophil predominant leukocytosis. Patient denies chest pain , abdominal pain, pain with deep inspiration, orthopnea, PND, recent hospitalization travel or incarceration. He does report some mild nausea. Hospital Course Gopi Rosenberg is a 66 year old man with a PMH of severe COPD who presents with a 2 week history of increasing SOB, subjective fevers, and chills unresponsive to outpatient prednisone taper and Zpack. Upon initial presentation he had an elevated Trop while in SVT and CXR suggestive of pneumonia with possible new lung nodule. Patient was admitted secondary to sepsis and elevated troponins. There were also some concerns for possible abdominal aortic aneurysm and ultrasound was performed along with echo showing that this was not the case. Patient was started on azithromycin 500 mg daily and prednisone 40 mg daily and responded well to treatment. The patient's troponin started trending down and the elevated troponin was felt to be most likely secondary to the increase in his COPD and his pneumonia. The patient was sent home to finish out his antibiotic and prednisone course (azithromycin 500 mg by mouth daily for 5 days and prednisone 40 mg by mouth daily for 5 days). The patient has a concerning lung mass which was evaluated by pulmonary critical care who feels that this may actually be secondary to the pneumonia that he has. The patient should follow up in one month with a chest CT for reevaluation of this lung mass. Patient was discharged home in stable condition Poor for hospital course see below: Community acquired pneumonia, POA, acute. Active -ED antibiotics as above -Will continue with Ceftriaxone and Azithromycin pending cultures -Blood cultures pending, Respiratory PCR negative -Sputum cultures drawn after ED antibiotics pending -S.pneumonia and Legionella urine antigen pending -CONTINUE OUTPATIENT AZITHROMYCIN FOR 5 DAYS Possible new lung nodule, POA, chronicity uncertain. Active -Hyperdense spiculated mass on CXR -CT with results as above -Extensive Smoking history quit 2 years ago -Review of outpatient records indicate about 4 kg weight loss in the past 6 weeks in this already very thin gentleman -WILL NEED FOLLOW-UP CT-CHEST IN 1 MONTH Septic Shock, POA, acute. RESOLVED -Leukocytosis at 16.6, initially tachy at 150, Hypotensive at 80s/50s, requiring Norepinephrine to maintain pressures following 4L fluid resuscitation -White count has trended towards normal, weaned off pressors with stable hemodynamics -Most likely secondary to pneumonia -Lactic acid normal -Elevated Troponin most likely secondary to tachycardia -Received 4L NS in the ED -Received Vanco, Zosyn, Levofloxacin, and Ceftriaxone in the ED COPD, POA, chronic. Active -Review of [address] images reveals severe bullous emphysema -DuoNeb Q4 PRN -Prednisone 40 mg PO daily -Repeated Chest CT w con with results as above Supraventricular tachycardia, POA, acute. Resolved -Initial ECG sinus Tach at 150 -Likely secondary to septic process -Echo results pending -Given 6mg Adenosine in the ED with good response -Tele monitoring Elevated Troponin of uncertain significance, POA, acute. RESOLVED -Likely secondary to tachycardia induced demand ischemia -Initial Trop 0.093, since stabilized -ECHO with results as above, not concerning for ACS Prediabetes, POA, chronic. Active -Holding home Metformin due to contrast administration -Lispro sliding scale -A1c = 5.7 Disposition: PATIENT DISCHARGED IN IMPROVED AND STABLE CONDITION WITH UNDERSTANDING OF HIS ADMISSION AND FOLLOW, AND INSTRUCTED ON WHEN TO RETURN TO THE ED Exam Vital Signs (Last) Date Time Temp Pulse Resp B/P Pulse Ox O2 Delivery O2 Flow Rate FiO2 08/12/16 11:57 36.5 74 18 105/67 94 08/12/16 08:30 Room Air Exam Gen: A/O x3 pleasant very slender cooperative man in NAD CV: RRR, no murmurs rubs or gallops Resp: decreased lung sounds, very mild diffuse expiratory wheezing Abdomen: Soft, non tender, no organomegaly, BS +4Q Extr: no cyanosis clubbing or edema Neuro: CN 2-12 grossly intact, no focal neurologic deficit Psych: pleasant and appropriate mood and affect Test 08/10/16 00:00 08/10/16 10:05 6/16/17 10:56 08/10/16 20:00 Urine Color Yellow (YELLOW) Urine Appearance Clear (CLEAR,HAZY) Urine pH 5.0 (5.0-8.0) Urine Specific Eloy 1.010 (1.003-1.035) Urine Protein Negativemg/dL (NEG,TRACE) Urine Glucose (UA) Negativemg/dL (NEGATIVE) Urine Ketones Negativemg/dL (NEGATIVE) Urine Occult Blood Negative (NEGATIVE) Urine Nitrite Negative (NEGATIVE) Urine Bilirubin Negative (NEGATIVE) Urine Urobilinogen Normalmg/dL (NORMAL) Urine Leukocyte Esterase Negative (NEGATIVE) Urine RBC 0-2/hpf (0-2) Urine WBC 0-5/hpf (0-5) Urine Epithelial Cells Occasional/hpf (NONE-MOD) Urine Crystals None seen (NONE SEEN) Urine Bacteria None/hpf (NONE-FEW) Urine Hyaline Casts None/lpf (NONE) Urine Granular Casts None seen (NONE SEEN) Urine Waxy Casts None seen (NONE SEEN) Urine Red Blood Cell Casts None seen (NONE SEEN) Urine White Blood Cell Casts None seen (NONE SEEN) Urine Mucus None seen (None Seen) Urine Trichomonas None seen (NONE SEEN) Urine Yeast None (NONE SEEN) Urinalysis Comment None Urine Culture Reflexed Not indicated Hemoglobin A1c 5.7% (4.8-5.6) Lactic Acid Level 2.0mmol/L (0.4-2.0) Urine Legionella pneumophilia Ag Negative (Negative) Test 08/11/16 04:30 08/12/16 04:00 Prothrombin Time 12.1sec (8.1-12.5) Prothromb Time International Ratio 1.13ratio Troponin T 0.036ug/L (0.0-0.011) Pro-B-Type Natriuretic Peptide 2500pg/mL (0-376) White Blood Count 10.0th/mm3 (3.8-10.1) Red Blood Count 3.71mil/mm3 (4.40-5.80) Hemoglobin 11.2g/dL (13.8-17.2) Hematocrit 33.1% (41.0-50.0) Mean Corpuscular Volume 89.2fL (81-100) Mean Corpuscular Hemoglobin 30.2pg (27.0-35.0) Mean Corpuscular Hemoglobin Concent 33.8% (32.0-37.0) Red Cell Distribution Width 11.7% (12.3-15.4) Platelet Count 210bil/L (150-400) Neutrophils (%) (Auto) 73.2% (40-74) Lymphocytes (%) (Auto) 12.2% (14-46) Monocytes (%) (Auto) 11.2% (4-12) Eosinophils (%) (Auto) 2.8% (0-5) Basophils (%) (Auto) 0.2% (0-3) Sodium Level 141mEq/L (134-144) Potassium Level 3.4mEq/L (3.5-5.2) Chloride Level 105mEq/L (97-108) Carbon Dioxide Level 25mmol/L (18-29) Blood Urea Nitrogen 9mg/dL (8-27) Creatinine 0.72mg/dL (0.76-1.27) Estimat Glomerular Filtration Rate 115mL/min (>59) Glucose Level 102mg/dL (60-99) Calcium Level 8.4mg/dL (8.5-10.1) Phosphorus Level 2.4mg/dL (2.5-4.9) Magnesium Level 1.9mg/dL (1.6-2.6) Total Bilirubin 0.2mg/dL (0.0-1.2) Aspartate Amino Transf (AST/SGOT) 15U/L (0-50) Alanine Aminotransferase (ALT/SGPT) 9U/L (0-44) Alkaline Phosphatase 63U/L (25-160) Total Protein 5.3g/dL (6.4-8.4) Albumin 2.6g/dL (3.4-5.0) Procalcitonin 0.09ng/mL (0.00-0.08) Microbiology Results Respiratory PCR negative Blood cultures pending Discharge Medications Discharge Medications Azithromycin (Azithromycin) 500 Mg Tablet 500 MG PO DAILY Prescribed by: PARKER LANGLEY DO Prednisone (PredniSONE) 20 Mg Tablet 40 MG PO DAILY Prescribed by: PARKER LANGLEY DO Additional med instructions Prednisone 40mg by mouth daily for 7 days Azithromycin 500mg by mouth daily for 5 days Followup Plan Discharge Diet: No restrictions Discharge Activity: No restrictions Patient Instructions You were admitted due to pneumonia and COPD. You briefly required a stay in the ICU to help maintain your blood pressure. On CT there was a mass noted in the lower lobe of your left lung. This will need additional imaging in a month. Your primary care doctor can provide the order. Please continue to take Prednisone 40mg daily for 7 days and Azithromycin 500mg daily for 5 days. Follow-up Provider: Bhavna Barker MD Follow-up with PCP in: 1 week Time spent Greater than 35 minutes Attending Statement The patient was seen and examined together with Dr. Langley on 08/12/2016 and I have added additional information to the note above. copies to: Bhavna Barker MD,Parker Guzman DO Aug 12, 2016 14:28 Kizzy Irwin DO Aug 12, 2016 18:40 Attending Statement The patient was seen and examined together with Dr. Langley on 08/12/2016 and I have added additional information to the note above. copies to: Bhavna Barker MD,Parker Guzman DO Aug 12, 2016 14:28 Kizzy Irwin DO Aug 12, 2016 18:40
--- NOTE | 2016-08-12 14:30 | NUR ---
Discharge Pt was educated on diagnosis, medications, and home care. Telemetry leads were removed. IVs were removed. IV therapy removed IJ from neck. Pt and demonstrated understanding of teaching. Pt and RN both signed last page of discharge packet. Follow-up care was explained in detail. Pt left with all personal belongings and was accompanied by a staff member down to the car.
== END 2016-08-12 14:30 | disposition home or self-care (01) | DRG 871 ==
LOC: SED 09:56 → CCU 13:47 → PCC 08-11 08:00
PROVIDERS: ADMIT Neuromusculoskeletal Medicine & OMM; ATTEND Neuromusculoskeletal Medicine & OMM
DX: A41.9 Sepsis, unspecified organism (principal); R65.21 Severe sepsis with septic shock; J18.9 Pneumonia, unspecified organism; J44.0 Chronic obstructive pulmonary disease with (acute) lower respiratory infection; I47.1 Supraventricular tachycardia; I24.8 Other forms of acute ischemic heart disease; Z87.891 Personal history of nicotine dependence; R73.03 Prediabetes; Z79.84 Long term (current) use of oral hypoglycemic drugs; R91.8 Other nonspecific abnormal finding of lung field

== ENCOUNTER 2016-08-15 10:58 | Emergency (ER) | payer MEDICARE ==
[~2016-08-15] VITALS: Ht 172.7 cm; Wt 54.5 kg
[~2016-08-15 10:58] MED LIST changes: -ASPI-628 PO; +AZIT500T5 PO; -METF500T4 PO; -MULT-1018 PO; +PRE20 PO
[2016-08-15 11:12] VITALS: BP 130/74; PULSE 69; RESP 18; O2SAT 100
[2016-08-15 11:45] VITALS: BP_SYST 128; BP_SYST 133; BP_DIAS 57; BP_DIAS 67; PULSE 69; RESP 18; O2SAT 98
[2016-08-15] MEDS: HYDROmorphone 0.5 mg/0.5 mL iSecure Syringe IVPUSH PRN ×2 (11:57→12:40)
[2016-08-15 11:58] LABS: BASOPHILS % (AUTO) 0.3 % (0-3); EOSINOPHILS % (AUTO) 2.3 % (0-5); Mean Corpuscular Volume 89.8 fL (81-100); NEUTROPHILS % (AUTO) 65.3 % (40-74); Platelet Count 490 bil/L (150-400)
--- NOTE | 2016-08-15 12:10 | ED.REPORT ---
[facility]-Abd Pain M 40 and Over Date of Service Aug 15, 2016 ED Provider: Jose Leger PA-C Gopi is a 58-year-old male presenting with a chief complaint of left lower quadrant pain. Patient reports that the pain began insidiously this morning, at first "just feeling like gas pain" but worsening to become quite severe. Pain level fluctuates, but patient reports that nothing makes it better or worse. Reports radiation to his back. Admits to episodes of "black, tarry stools." Denies history of kidney stones, diverticulitis, GI bleed, NSAID use, ulcer, vomiting, diarrhea, chest pain, palpitation, shortness of breath, cough, wheeze, hematuria or dysuria. Patient was recently discharged from this hospital after treatment for pneumonia and elevated troponin levels. Nursing Notes Stated Complaint: LOWER BACK/ABDOMINAL PAIN Chief Complaint: Male Abdominal Pain Nursing Notes Reviewed: Yes Allergies: Coded Allergies: No Known Drug Allergies (Verified Allergy, Unknown, 08/15/16) Scheduled Azithromycin (Azithromycin) 500 Mg Tablet 500 MG PO DAILY Prednisone (PredniSONE) 20 Mg Tablet 40 MG PO DAILY Tamsulosin (Flomax) 0.4 Mg Capsule 0.4 MG PO DAILY General Time Seen by MD: 11:51 Chief Complaint Abdominal pain Sudden in Onset?: No Past Medical History Past Medical History COPD Past Surgical History Reports: Tonsillectomy Smoking History Former Smoker Social History Other Social History: Good social support Ambulatory Status Independent Review of Systems General: Admits chills, denies fever, malaise HEENT: Denies congestion, headache, sore throat. Respiratory: Denies dyspnea, cough, shortness of breath, wheezing. Cardiovascular: Denies chest pain, palpitations. Gastrointestinal: Denies vomiting, diarrhea, admits abdominal pain. Genitourinary: Denies frequency, urgency, dysuria, hematuria. Otherwise as noted in HPI. Physical Exam General: Well appearing, well developed, well nourished, moderate to severe distress. Patient is writhing on the gurney. Head: Atraumatic, normocephalic. Eyes: No scleral icterus or injection. No discharge. Vision grossly intact. ENT: Voice clear, hearing grossly intact. Respiratory: Regular rate and rhythm. Breath sounds present, clear to auscultation and equal bilaterally. No respiratory distress. No increased work of breathing, speaks in complete sentences. Cardiovascular: Regular rate and rhythm, without murmur, gallop or rub. No pedal edema. Gastrointestinal: Abdomen flat with mild global tenderness without guarding or rebound. Bowel sounds normoactive. Back: Normal to inspection, mild left CVA tenderness. Rectal: Normal to inspection, nontender. Prostate nontender without masses, slightly enlarged. Productive of soft brown stool, guaiac negative. Skin: Warm and dry. Neurological: Grossly nonfocal. Psychological: Alert and oriented. Speech appropriate, linear and logical. Behavior appropriate. Initial Vital Signs Vital Signs (First) Date Time Temp Pulse Resp B/P Pulse Ox O2 Delivery O2 Flow Rate FiO2 08/15/16 11:12 35.2 69 18 130/74 100 Room Air Normal Interpretation & Diagnostics Lab Results Interpretation Result Diagram: 08/15/16 1138 08/15/16 1138 Test 08/15/16 11:38 08/15/16 17:20 White Blood Count 12.7th/mm3 (3.8-10.1) Red Blood Count 4.10mil/mm3 (4.40-5.80) Hemoglobin 12.7g/dL (13.8-17.2) Hematocrit 36.8% (41.0-50.0) Mean Corpuscular Volume 89.8fL (81-100) Mean Corpuscular Hemoglobin 31.0pg (27.0-35.0) Mean Corpuscular Hemoglobin Concent 34.5% (32.0-37.0) Red Cell Distribution Width 12.2% (12.3-15.4) Platelet Count 490bil/L (150-400) Neutrophils (%) (Auto) 65.3% (40-74) Lymphocytes (%) (Auto) 21.8% (14-46) Monocytes (%) (Auto) 9.0% (4-12) Eosinophils (%) (Auto) 2.3% (0-5) Basophils (%) (Auto) 0.3% (0-3) Prothrombin Time 10.9sec (8.1-12.5) Prothromb Time International Ratio 1.02ratio Activated Partial Thromboplast Time 23.3sec (22.8-33.0) Sodium Level 142mEq/L (134-144) Potassium Level 3.4mEq/L (3.5-5.2) Chloride Level 101mEq/L (97-108) Carbon Dioxide Level 22mmol/L (18-29) Blood Urea Nitrogen 22mg/dL (8-27) Creatinine 0.96mg/dL (0.76-1.27) Estimat Glomerular Filtration Rate 83mL/min (>59) Glucose Level 125mg/dL (60-99) Calcium Level 9.6mg/dL (8.5-10.1) Magnesium Level 1.9mg/dL (1.6-2.6) Total Bilirubin 0.2mg/dL (0.0-1.2) Aspartate Amino Transf (AST/SGOT) 33U/L (0-50) Alanine Aminotransferase (ALT/SGPT) 31U/L (0-44) Alkaline Phosphatase 72U/L (25-160) Troponin T < 0.010ug/L (0.0-0.011) Total Protein 7.1g/dL (6.4-8.4) Albumin 3.4g/dL (3.4-5.0) Lipase 32U/L (13-60) Urine Color Yellow (YELLOW) Urine Appearance Clear (CLEAR,HAZY) Urine pH 5.0 (5.0-8.0) Urine Specific [place] 1.020 (1.003-1.035) Urine Protein Negativemg/dL (NEG,TRACE) Urine Glucose (UA) Negativemg/dL (NEGATIVE) Urine Ketones Negativemg/dL (NEGATIVE) Urine Occult Blood Large (NEGATIVE) Urine Nitrite Negative (NEGATIVE) Urine Bilirubin Negative (NEGATIVE) Urine Urobilinogen Normalmg/dL (NORMAL) Urine Leukocyte Esterase Negative (NEGATIVE) Urine RBC 11-50/hpf (0-2) Urine WBC 0-5/hpf (0-5) Urine Epithelial Cells Few/hpf (NONE-MOD) Urine Crystals None seen (NONE SEEN) Urine Bacteria Few/hpf (NONE-FEW) Urine Hyaline Casts None/lpf (NONE) Urine Granular Casts None seen (NONE SEEN) Urine Waxy Casts None seen (NONE SEEN) Urine Red Blood Cell Casts None seen (NONE SEEN) Urine White Blood Cell Casts None seen (NONE SEEN) Urine Mucus None seen (None Seen) Urine Trichomonas None seen (NONE SEEN) Urine Yeast None (NONE SEEN) Urinalysis Comment None Urine Culture Reflexed Not indicated ECG Interpretation ECG Interpretation: Mild ST elevation in anterior leads, unchanged from previous. Does not suggest STEMI. Time: 11:58 Interpreted by: ED physician (Dr. Kelley) CT Abd / Pelvis Interpretation PROCEDURE: CT ABDOMEN AND PELVIS WITH CONTRAST ([id number]) INDICATIONS: left lower quadrant pain IMPRESSION: 1. Mild to moderate left hydronephrosis and hydroureter with a linear hyperdensity at the ureterovesicular junction most suggestive of recently passed stone. 2. Minimal left pleural effusion with dependent superimposed changes. Interpretation / Wet Read by: Interpret - Radiologist Re-Eval/Medical Decision Med Decision/Clinical Course Otherwise healthy 58-year-old male presents with left lower quadrant pain that began this morning and progressed rapidly in severity. Reports it is somewhat intermittent and radiating to his back. Admits to several episodes of "blacks tarry stools." Denies urinary symptoms. Denies history of kidney stones, upper GI bleeding, ulcer, NSAID use. Does go examination reveals a patient who appears to be in severe pain, writhing on the gurney. His abdomen is only mildly tender. Left CVA tenderness. Stool guaiac is negative. Vital signs are within normal limits. EKG reveals mild ST elevation in anterior leads consistent with previous studies. CT with oral contrast appears consistent with a resolved kidney stone. CBC reveals mild leukocytosis of 12.7, mild anemia , slight thrombo-cytosis 490. CMP reveals slightly low potassium at 3.4 and normal nonfasting glucose. Troponin is negative. PT/INR, a PTT are normal. Urinalysis reveals occult blood, 11-50 urine RBCs, otherwise normal. Discussed this case with Dr. Kelley. At this point we believe this is a resolved kidney stone. He recommends Flomax, acetaminophen, ibuprofen. We are reassured regarding AAA, pyelonephritis, cystitis, diverticulitis, [place]. I discussed this with the patient who feels completely resolved and ready to be discharged home. Provided prescription for Flomax. Advised regarding over-the- counter analgesia. Advised regarding primary care follow-up, provided emergency return precautions. Patient verbalized understanding of, and consent to, the plan. Time of Eval: 14:04 Re-Evaluation/Progress Note: Patient reports his pain is resolved. Discharge & Departure Primary Impression: Kidney stone on left side Disposition: Home Vital Signs - All Vital Signs Date Time Temp Pulse Resp B/P Pulse Ox O2 Delivery O2 Flow Rate FiO2 6/21/17 18:27 37 61 14 123/56 100 Room Air 08/15/16 15:04 36.6 66 15 122/59 98 Room Air 08/15/16 11:45 69 18 128/67 98 Room Air 08/15/16 11:45 133/57 08/15/16 11:12 35.2 69 18 130/74 100 Room Air )( All Prior VS Reviewed: Yes Condition: Stable Patient Instructions: Kidney Stones (ED) Additional Instructions: Evaluation for abdominal pain and emergency department consists of history, physical examination, blood tests and CT scan, ball which suggests to have recently passed a kidney stone. This would explain your significant pain as well as its resolution. Urinalysis is reassuring that there is no infection. Because there may be a retained kidney stone that we did not see on CT scan, I will prescribe Flomax to help relax the tubes. If you find after several days that you have no pain, feel free to stop this medication. The pain is best treated with 800 mg of ibuprofen (Advil, Motrin) every 6 hours , or 1000 mg of acetaminophen (Tylenol) every 6 hours. These drugs can be taken at the same time for more severe pain. Follow-up with your primary care provider in 2-3 days to be sure this is resolving as expected. Return to emergency department for any new or worsening symptoms including increasing pain, vomiting, fever. Referrals: Chino Orellana DO (PCP) EDSupervising Provider for APC: Brad Kelley MD Attending Statement Discussed patient with NOREEN Leger. I evaluated patient independently and agree with plan as above. In brief 66-year-old male with left lower quadrant and left flank pain. CT shows probable passed kidney stone. Urine is negative for infection. Labs and vital signs are stable. Patient pain resolved when he was here. Patient will be discharged with Flomax and plans to follow up with primary doctor return precautions given. copies to: Chino Orellana Seth PA-C Aug 15, 2016 12:10 Brad Kelley MD Aug 15, 2016 18:36 Brad Kelley MD Aug 15, 2016 18:36
[2016-08-15 12:37] LABS: Magnesium 1.9 mg/dL (1.6-2.6)
[2016-08-15 13:37] LABS: INR 1.02 ratio
[2016-08-15] MEDS ORDERED: 0.9% Sodium Chloride 1,000 ML IV ONE ×2 (14:00→14:55)
[2016-08-15] MEDS ORDERED: Iohexol 300 mg/mL 30 mL Inj PO ONE (15:00)
[2016-08-15 15:04] VITALS: BP 122/59; PULSE 66; RESP 15; O2SAT 98
--- NOTE | 2016-08-15 16:36 | DRSVH ---
PROCEDURE: CT ABDOMEN AND PELVIS WITH CONTRAST ([id number]) INDICATIONS: left lower quadrant pain TECHNIQUE: After the administration of oral and intravenous contrast, 5 mm thick sections acquired from the diap hragms to the symphysis. 5 mm thick coronal and sagittal reformats were performed. For radiation do se reduction, the following was used: automated exposure control, adjustment of mA and/or kV accordi ng to patient size. COMPARISON: [facility], CT, CT CHEST W CON, 08/10/2016, 15:30. FINDINGS: Image quality: Excellent. ABDOMEN: Lung bases: Prominent spurring is present the lung bases with trace effusion and dependent changes no kwame in the left base. Heart size is normal. Solid organs: Liver is enlarged with steatosis. normal in size and enhancement. Gallbladder is unre markable. Biliary system is non-dilated. Pancreas enhances normally. No adrenal nodules. Kidneys are normal in size and enhancement. There is mild to moderate left hydronephrosis and hydroureter. Th ere is a faint linear area of hyperdensity at the ureterovesicular junction measuring approximately 6 mm suggestive of recently passed stone. Peritoneum and bowel: Stomach, small bowel, and colon loops are normal in caliber and wall thickness . No free fluid or air. Nodes and vessels: No retroperitoneal or mesenteric adenopathy. Aorta and inferior vena cava are no rmal in caliber. Miscellaneous: No ventral hernias. PELVIS: Genitourinary: Bladder wall thickness is normal. Miscellaneous: No inguinal hernias or adenopathy. Bones: No suspicious bony lesions. No vertebral body compression fractures. IMPRESSION: 1. Mild to moderate left hydronephrosis and hydroureter with a linear hyperdensity at the ureterovesi cular junction most suggestive of recently passed stone. 2. Minimal left pleural effusion with dependent superimposed changes. Dictated by: Bhavana Hernandez M.D. on 08/15/2016 at 16:31 Approved by: Bhavana Hernandez M.D. on 08/15/2016 at 16:35
[2016-08-15 17:50] LABS: APPEARANCE,URINE CLEAR (CLEAR,HAZY); COLOR,URINE YELLOW (YELLOW); OCCULT BLOOD,URINE LARGE (NEGATIVE); UROBILINOGEN,URINE NORMAL (NORMAL)
[2016-08-15] MEDS ORDERED: TAMS0.4C98 PO (18:12)
[2016-08-15 18:27] VITALS: BP 123/56; PULSE 61; RESP 14; O2SAT 100
== END 2016-08-15 18:30 | disposition home or self-care (01) ==
LOC: SED 10:58
DX: N20.0 Calculus of kidney (principal); J44.9 Chronic obstructive pulmonary disease, unspecified; Z87.891 Personal history of nicotine dependence
CPT/HCPCS: 36415; 74177; 80053; 81000; 83690; 83735; 84484; 85025; 85610; 85730; 86850; 93005; 96361; 96374; 99285; J1170; J7030; Q9967